=== PATIENT | female | born 1960 | race Caucasian/White ===

== ENCOUNTER 2020-04-15 18:48 | Emergency (ER) | payer OTHER ==
[~2020-04-15] VITALS: Ht 162.6 cm; Wt 78.5 kg
[~2020-04-15 18:48] MED LIST: ATENOLOL 50 MG50 M1; CELEXA 10 MG TA10 M1; CELEXA40 MG; NASONEX17 GM; NEURONTIN 300300 M1; PREDNISONE 20 M20 MG PO; PREVACID30 M1; ZEBUTAL
[2020-04-15] MEDS ORDERED: INDERAL LA120 M1 PO (19:11)
[2020-04-15] MEDS ORDERED: NEXIUM5 MG PO (19:12)
[2020-04-15] MEDS ORDERED: LORATIDINE 10 M10 M1 PO (19:13)
[2020-04-15] MEDS ORDERED: ONDANSETRON HCL4 M2 PO (19:14)
[2020-04-15] MEDS ORDERED: TRAMADOL 50 MG50 MG PO (19:14)
[2020-04-15] MEDS ORDERED: PHENERGAN 25 MG25 M1 PO (19:15)
[2020-04-15] MEDS ORDERED: SKELAXIN 800 M800 M1 PO (19:16)
[2020-04-15] MEDS ORDERED: TORADOL 10 MG T10 MG PO (19:16)
[2020-04-15 19:20] LABS: ABSOLUTE BASOPHILS 0.1 thou/uL (0.0-0.2); ABSOLUTE EOSINOPHILS 0.7 thou/uL (0.0-0.7); ABSOLUTE LYMPHOCYTES 1.9 thou/uL (0.8-5.3); ABSOLUTE MONOCYTES 0.6 thou/uL (0.0-1.2); EOSINOPHILS 8.5 %; HEMATOCRIT 38.8 % (37.0-47.0); HEMOGLOBIN 13.2 gm/dL (12.0-15.0); LYMPHOCYTES 22.4 %; MCH 28.1 pg (26.0-34.0); MCV 82.7 fL (80.0-100.0); MONOCYTES 7.6 %; MPV 9.3 fl. (7.2-11.1); NUCLEATED RBCS 0 /100WBC; PLATELET COUNT* 235 thou/uL (150-400); POLYS 60.5 %; RBC 4.69 mil/uL (4.20-5.00); RDW-CV 13.5 % (10.5-14.5); WBC 8.3 thou/uL (4.0-11.0)
[2020-04-15 19:33] LABS: CALCIUM 8.6 mg/dL (8.5-10.1); POTASSIUM 3.4 mmol/L (3.5-5.1)
[2020-04-15 19:43] LABS: ALBUMIN 3.4 g/dL (3.4-5.0); MAGNESIUM 1.8 mg/dL (1.8-2.4); TOTAL BILIRUBIN 0.5 mg/dL (<0.1-1.0); TOTAL PROTEIN 6.6 g/dL (6.4-8.2)
[2020-04-15 22:25] VITALS: BP 118/62
--- NOTE | 2020-04-16 10:40 | EKG ---
[place] [address] ELECTROCARDIOGRAM REPORT Name: NESHA L[address] Room: [facility]#: [id number] Admission: 04/15/20 Attend Phys: Discharge: 04/15/20 Date of : 56 Date of Service: 04/15/20 1900 Report #: [id number] THIS REPORT FOR: //name// [facility] ED Test Date: 2020-04-15 Test Time: 19:00:12 Pat Name: NESHA LANE Department: Room: Gender: F Director Of Casework: CARLY : 1960 Requested By: Eliseo Machado Order Number: [id number] MD: Sami Pollack Measurements Intervals [place] Rate: 86 P: 42 MA: 141 QRS: 16 QRSD: 95 T: 12 QT: 360 QTc: 431 Interpretive Statements Sinus rhythm Abnormal R-wave progression, early transition Baseline wander in lead(s) II Compared to ECG 07/02/2010 09:06:50 No significant changes Electronically Signed On 04-16-2020 10:40:39 CDT by Sami Pollack [email or web address] <ELECTRONICALLY SIGNED> By: Sami Pollack MD, [facility] 04/16/20 1040 99 99 Sami Pollack MD, [facility] /EPI
== END 2020-04-15 22:25 | disposition home or self-care (01) ==
LOC: M.ERS 18:48
PROVIDERS: Family Medicine
DX: R00.2 Palpitations (principal); G43.909 Migraine, unspecified, not intractable, without status migrainosus; I10 Essential (primary) hypertension; Z88.5 Allergy status to narcotic agent; Z88.8 Allergy status to other drugs, medicaments and biological substances; Z91.018 Allergy to other foods; Z90.49 Acquired absence of other specified parts of digestive tract